=== PATIENT | female | born 1960 | race Caucasian/White ===

== ENCOUNTER → 2020-01-09 | Outpatient (CLI) | payer MEDICARE, MEDICAID ==
[~2020-01-09] MED LIST: DEPAKOTE ER 25250 MG; UNKNOWN BP MED
== END ==
LOC: MC.RAD 13:00
DX: N63.10 Unspecified lump in the right breast, unspecified quadrant (principal)
CPT/HCPCS: G0279

== ENCOUNTER → 2021-02-18 | Outpatient (CLI) | payer MEDICARE, MEDICAID | LOC: ZCOL.LAB 10:51 | DX: Z01.812 Encounter for preprocedural laboratory examination (principal); Z20.822 Contact with and (suspected) exposure to COVID-19 ==

== ENCOUNTER 2021-04-19 17:18 | Emergency (ER) | payer MEDICARE, MEDICAID ==
[~2021-04-19] VITALS: Ht 144.8 cm; Wt 63.6 kg
[2021-04-19 17:26] VITALS: TEMP 98.2
[2021-04-19 20:09] LABS: BASO # 0.1 (0.0-0.2); BASO % 0.8 % (0.0-2.0); EOS # 0.4 (0.0-0.7); EOS % 6.1 % (0-4.0); GRAN # 2.6 (1.4-6.5); GRAN % 39.6 % (42.2-75.2); HEMOGLOBIN 11.3 g/dl (12.5-16.0); LYMPH # 2.8 (1.2-3.4); LYMPH % 42.7 % (20.0-51.0); MEAN CELL VOLUME 93 fl (80.0-100.0); MEAN CORPUSCULAR HEMOGLOBIN 30 pg (27.0-31.0); MEAN CORPUSCULAR HGB CONC 32 g/dl (33.0-37.0); MEAN PLATELET VOLUME 9.9 fl (7.4-10.4); MONO # 0.7 (0.1-0.6); MONO % 10.5 % (1.7-9.3); PLATELET COUNT 254 K/mm3 (130-400); RED BLOOD COUNT 3.77 M/mm3 (4.10-5.30); REDCELL DISTRIBUTION WIDTH-CV 14.1 % (11.5-14.5)
[2021-04-19 20:11] LABS: HEMATOCRIT 34.9 % (37.0-47.0)
[2021-04-19 20:26] LABS: ALANINE AMINOTRANSFERASE 17 U/L (4-34); ALBUMIN 3.7 gm/dL (3.5-5.0); ALKALINE PHOSPHATASE 143 U/L (50-136); ANION GAP 6 mmol/L (7-16); AST,SGOT 32 U/L (15-37); BILIRUBIN,TOTAL 0.2 mg/dL (0.0-1.0); BLOOD UREA NITROGEN 34 mg/dL (7-17); CALCIUM 9.5 mg/dL (8.4-10.2); CARBON DIOXIDE 19 mmol/L (22-30); CHLORIDE 113 mmol/L (98-107); CREATININE, serum 1.33 (0.52-1.25); GLUCOSE 102 mg/dL (74-106); SODIUM 138 mmol/L (137-145); TOTAL PROTEIN 7.2 gm/dL (6.4-8.2)
[2021-04-19 20:32] LABS: ERYTHROCYTE SEDIMENTATION RATE 13 mm/hr (0-30)
[2021-04-19 20:33] LABS: C-REACTIVE PROTEIN < 0.5 mg/dL (0.0-0.9)
[2021-04-19 22:36] VITALS: BP 144/80; PULSE 87
== END 2021-04-19 22:36 | disposition home or self-care (01) ==
LOC: COL.ER 17:18
PROVIDERS: Emergency Medicine
DX: L03.115 Cellulitis of right lower limb (principal); J44.9 Chronic obstructive pulmonary disease, unspecified; I10 Essential (primary) hypertension; F17.210 Nicotine dependence, cigarettes, uncomplicated